=== PATIENT | female | born 1980 | race Caucasian/White ===

== ENCOUNTER 2020-03-02 15:17 | Emergency (ER) | payer OTHER, SELFPAY ==
--- NOTE | 2020-03-02 | XR_ITS ---
EXAMINATION: XR KNEE, LEFT CLINICAL INFORMATION: Hardware pain. COMPARISON: Left knee 08/15/2017 TECHNIQUE: Four views of the left knee. FINDINGS: There is evidence of previous left ACL repair. With a threaded screw extending from the medial proximal tibia to the lateral cortex with a small metallic staple is seen along superior to the left lateral femoral condyle. There is loss of medial and patellofemoral compartment joint space with periarticular spurring. The soft tissues are normal. No abnormal joint effusion seen. XR/XR knee LT 4V IMPRESSION: Evidence of previous left ACL repair unchanged to 08/15/2017 exam. Mild degenerative changes medial and patellofemoral compartments with periarticular spurring. No loose bodies or joint effusion seen.
[2020-03-02 15:26] VITALS: BP 142/91; PULSE 105; RESP 16; TEMP 36.7; O2SAT 100; BMI 41.3
--- NOTE | 2020-03-02 16:04 | ED.LOWEXIN ---
HPI - Extremity Injury (Lower) General Chief Complaint: Extremity Injury, Lower Stated Complaint: KNEE PAIN Time Seen by Provider: 03/02/20 16:04 Source: patient Mode of arrival: ambulatory Limitations: no limitations History of Present Illness HPI Narrative: 39 y/o female presenting with acute onset of left knee pain after she hurt it while getting out of bed last night. She has a history of knee surgery to that knee in the past. She does not recall if she inverted or everted the knee but she did hear a pop and has been having pain since last night. She is able to ambulate but she limps. She states the pain is on the inside of her knee, does no radiate. It is constant. Some improvement with ibuprofen earlier today. MD complaint: knee injury Onset (ago): day(s) (1) Injury: Left: knee Type of Injury: unknown Place: home Severity: moderate Severity scale (1-10): 7 Relieving factors: NSAID Exacerbating factors: weight bearing, movement and palpation Context: walking Associated symptoms: snap/pop sensation Other symptoms: none Treatments prior to arrival: NSAIDS Related Data Previous Rx's Medication Instructions Recorded ibuprofen 600 mg PO TID #30 tab 03/02/20 oxycodone 5 mg PO TID PRN #10 tab 03/02/20 Allergies Allergy/AdvReac Type Severity Reaction Status Date / Time codeine Allergy Nausea Verified 03/02/20 15:35 adhesives Allergy Unknown itching Uncoded 01/15/18 00:00 oxycodone Allergy Unknown itching Uncoded 01/15/18 00:00 Review of Systems Review of Systems: Constitutional: No Fever, No Chills Cardiovascular: No Chest Pain, No SOB Respiratory: No Cough, No Sputum Gastrointestinal: No Nausea, No Vomiting Musculoskeletal: + joint pain, No Myalgias Skin: No Skin Lesions, No rash Neuro: No Weakness, No Numbness Psych: No Anxiety/Panic, No Depression Heme/Lymph: No Bruising, No Lymphadenopathy PMFSH Past Medical History Attestation statement: The following information was validated with the patient. Medical History ACL (anterior cruciate ligament) rupture Atypical migraine Hodgkin lymphoma Right hand tendonitis Throat cancer Surgical History (Updated 03/02/20 @ 15:31 by Kroi Dia) H/O: hysterectomy Social History Social History Smoked in Last 30 Days: No Use of substances other than those prescribed or required for medical reasons: No Advance Directives: No Advance Directives Information Provided: Yes Physical Exam Vital Signs: Vital Signs: Vital Signs Temp Pulse Resp BP Pulse Ox 03/02/20 15:26 98.0 F 105 H 16 142/91 H 100 Body Mass Index 41.3 Appearance: Alert. Oriented X3. No acute distress. HEENT: normal inspection CVS: Normal heart rate and rhythm. Pulses normal. Respiratory: No respiratory distress. Skin: Skin warm and dry. Normal skin color. Normal skin turgor. No rashes. Extremities: left knee with tenderness along medial joint line, no joint laxity, anterior drawer test is negative. NV intact. Neuro: Oriented X 3. No motor deficit. No sensory deficit. Course Course Course Narrative: XR shows: Evidence of previous left ACL repair unchanged to 08/15/2017 exam. Mild degenerative changes medial and patellofemoral compartments with periarticular spurring. No loose bodies or joint effusion seen. Placed in BULMARO wrap for comfort. Deferring knee immobilization at this time. Crutches provided. Patient will follow up with her Orthopedist for further evaluation. MDM - Extremity Injury (Lower) MDM Narrative Medical decision making narrative: knee sprain or strain, possible tear of medial meniscus, possible tear or sprain of MCL Medical Records Attestation: I reviewed the patient's medical records. Critical Care Time Critical Care Time Critical Care Time: No Discharge Plan Discharge Clinical Impression: Knee sprain Qualifiers: Encounter type: initial encounter Involved ligament of knee: unspecified ligament Laterality: left Qualified Code(s): S83.92XA - Sprain of unspecified site of left knee, initial encounter Patient Disposition: Home, Self-Care Instructions: Knee Sprain (ED) Additional Instructions: Use ice 20 minutes at a time to the affected area several times per day for the next 48 hours. Elevate the knee to help with pain and swelling. Weight bearing as tolerated. Follow up with your Orthopedic Surgeon for further evaluation or follow up with Orthopedic Surgeon provided below. Prescriptions: New oxycodone 5 mg tablet 5 mg PO TID PRN (Reason: pain) Qty: 10 RF: 0 ibuprofen 600 mg tablet 600 mg PO TID Qty: 30 RF: 0 Referrals: Khadijah Bailey MD [Physician] - 2 days Stand Alone Forms: Work/School Release
[2020-03-02] MEDS: Acetaminophen 325 MG TABLET 975 MG PO (17:02)
[2020-03-02] MEDS: Ketorolac Tromethamine 30 MG/ML VIAL IM (17:03)
== END 2020-03-02 18:17 | disposition home or self-care (01) ==
PROVIDERS: Emergency Provider Emergency Medicine; PCP Pediatrics
DX: S83.92XA Sprain of unspecified site of left knee, initial encounter (principal); M25.562 Pain in left knee; X58.XXXA Exposure to other specified factors, initial encounter; Y93.9 Activity, unspecified; Y92.9 Unspecified place or not applicable; Y99.9 Unspecified external cause status
CPT/HCPCS: 73564; 96372; 99283; 99284; J1885

== ENCOUNTER 2021-04-29 09:46 | Outpatient (REF) | payer OTHER, SELFPAY ==
--- NOTE | ~2021-04-29 | CT_ITS ---
EXAMINATION: CT CHEST WITH CONTRAST CLINICAL INFORMATION: Lymphoma. Surveillance. COMPARISON: Previous chest CT most recent September 2017 TECHNIQUE: Multidetector volumetric CT imaging of the chest was obtained after the administration of 60 mL of Omnipaque 350 intravenous contrast without immediate adverse reactions. Axial MIP volume rendering provided. Sagittal and coronal reformatted images were obtained. This CT examination was performed using dose optimization techniques as appropriate, variously including the following: *Automated exposure control *Adjustment of mA and/or kV according to patient size (this includes techniques or standardized protocols for targeted exams where dose is matched to indication/reason for exam; i.e. extremities or head) *Use of iterative reconstruction technique DLP: 350 mGy-cm FINDINGS: LUNGS: There is a new 1 cm right upper lobe nodule axial image 105 series 13. There is a new heterogeneous or semisolid left lower lobe nodule measuring 8 mm axial image 281 series 13. There are adjacent smaller peribronchial left lower lobe nodules for example measuring 4 mm and 5 mm axial image 291 series 13. MEDIASTINUM: There is low-attenuation soft tissue with small calcification seen in the right. Mediastinum adjacent to the SVC the and left innominate vein axial image 9 series 11. This area is not as well evaluated on 2018 exam due to beam hardening artifact. This appears decreased in size from approximately 3 cm on previous PET/CT scan November 2018 and the calcification is new. There are additional smaller mediastinal lymph nodes, largest a pretracheal lymph node in the anterior superior mediastinum anterior to the trachea axial image 8 series 11. The mediastinum is otherwise normal.. PLEURA: There is no pleural effusion. No pleural mass or thickening. AXILLA: No chest wall mass or enlarged axillary lymph nodes. There are bilateral supraclavicular lymph nodes. The largest measures 1.2 cm on the right axial image 5 series 11. UPPER ABDOMEN: The gallbladder has been removed. OSSEOUS STRUCTURES: Unremarkable. CT/CT chest w con IMPRESSION: Low-attenuation partially calcified soft tissue in the right anterior superior mediastinum measuring 2 cm. This is difficult to compare with prior chest CT scans due to beam hardening artifact. This is decreased in size from previous PET/CT scan November 2016 and calcification is new. Additional smaller mediastinal lymph nodes. Small bilateral supraclavicular lymph nodes. New right upper pulmonary nodule measuring 1 cm. New clustered peribronchial left lower lobe nodules, largest measuring 8 mm. Clustered peribronchial appearance questions infectious or inflammatory process in the left lower lobe. Fleischner guidelines were followed.
--- NOTE | ~2021-04-29 | CT_ITS ---
EXAMINATION: CT SOFT TISSUE NECK WITH CONTRAST CLINICAL INFORMATION: Hodgkin's lymphoma. COMPARISON: CT/PET 12/08/2016, CT neck 10/11/2017, CT chest 10/10/2017 and 04/29/2021. TECHNIQUE: Following the intravenous administration of 100 mL of Omnipaque 350 intravenous contrast, helical imaging was performed in the axial plane with generation of coronal and sagittal reformatted images. This CT examination was performed using dose optimization techniques as appropriate, variously including the following: *Automated exposure control *Adjustment of mA and/or kV according to patient size (this includes techniques or standardized protocols for targeted exams where dose is matched to indication/reason for exam; i.e. extremities or head) *Use of iterative reconstruction technique DLP: 1554 mGy-cm FINDINGS: There are small shotty lymph nodes seen in bilateral anterior neck level 2 and level 3 along the carotid/jugular chain, stable. No bulky adenopathy seen in the neck, especially the supraclavicular fossa. The parotid glands are homogeneous in attenuation. The submandibular glands are normal. No contour abnormality or pathologic enhancement is seen within the oral cavity or pharyngeal mucosal space. The laryngeal structures are normal. The parapharyngeal fat is preserved. The carotid sheath vasculature opacify normally. No extra mucosal soft tissue mass or fluid collection is seen. No retropharyngeal fluid collection is seen. The thyroid gland is normal. The superior mediastinum is unremarkable. There is a 8 mm right upper lobe nodule axial image 116/5 it. There is mild mucoperiosteal thickening bilateral maxillary sinuses. The rest of the paranasal sinuses and mastoid air cells are well aerated.. The temporomandibular joints are normal. No periapical disease is identified. No osseous abnormalities are seen. The imaged portions of the brain parenchyma are unremarkable. CT/CT soft tissue neck w con IMPRESSION: No abnormal bulky lymphadenopathy seen in the neck. 8 mm nodule right upper lobe. This was visualized on recent CT chest exam 04/29/2021.
[2021-04-29] MEDS: iohexoL 350 MG/ML 100 ML INFUS..BTL IV (10:34)
== END 2021-04-29 09:47 | disposition home or self-care (01) ==
LOC: HO.CT 09:46
PROVIDERS: Visit Provider Internal Medicine
DX: C81.90 Hodgkin lymphoma, unspecified, unspecified site (principal)
CPT/HCPCS: 70491; 71260; Q9967

== ENCOUNTER → 2021-05-24 12:43 | Outpatient (BNVA) | payer OTHER, SELFPAY | PROVIDERS: PCP Pediatrics; Visit Provider Nurse Practitioner Family | DX: M25.562 Pain in left knee (principal); G89.29 Other chronic pain | CPT/HCPCS: 99202 ==

== ENCOUNTER → 2021-06-21 13:49 | Outpatient (BNVA) | payer OTHER, SELFPAY | PROVIDERS: PCP Pediatrics; Visit Provider Nurse Practitioner Family | DX: M25.562 Pain in left knee (principal); G89.29 Other chronic pain | CPT/HCPCS: 99212 ==

== ENCOUNTER 2021-07-19 06:12 | Outpatient (REF) | payer OTHER, SELFPAY ==
--- NOTE | ~2021-07-19 | FL_ITS ---
EXAMINATION: XR FLUOROSCOPY WITH IMAGES CLINICAL INFORMATION: Knee pain. COMPARISON: Previous x-ray July 2017 TECHNIQUE: Fluoroscopy performed by Deepika Crawford NP. Fluoroscopy time: 0.2 minutes DAP: 0.9 Gy-cm2 Images: 2 FINDINGS: Images demonstrate needle placement adjacent to the bilateral femoral distal metaphysis and proximal tibial medial metaphysis for geniculate nerve block. There are postsurgical changes from ACL repair that appear unchanged. FL/FL guidance in treatment room IMPRESSION: Fluoroscopy guidance for pain management procedure.
== END 2021-07-19 06:13 | disposition home or self-care (01) ==
LOC: HO.RADIR 06:12
PROVIDERS: Visit Provider Anesthesiology
DX: G89.29 Other chronic pain (principal); M25.562 Pain in left knee
CPT/HCPCS: 64454; J0690

== ENCOUNTER → 2021-07-22 12:11 | Outpatient (BNVA) | payer OTHER, SELFPAY | PROVIDERS: PCP Pediatrics; Visit Provider Nurse Practitioner Family | DX: Z13.89 Encounter for screening for other disorder (principal) ==

== ENCOUNTER 2021-09-12 10:42 | Emergency (ER) | payer OTHER, SELFPAY ==
--- NOTE | ~2021-09-12 | XR_ITS ---
EXAMINATION: XR CHEST CLINICAL INFORMATION: Dyspnea COMPARISON: CT chest 04/29/2021, chest radiograph 10/10/2017 TECHNIQUE: Frontal view of the chest was obtained. FINDINGS: No significant abnormality is noted involving the heart, lungs, mediastinum, bony thorax or soft tissues. The 1 centimeter right upper lobe pulmonary nodule seen on the prior CT scan not well appreciated on the current study. XR/XR chest 1V IMPRESSION: No acute intrathoracic disease.
[2021-09-12 11:42] VITALS: BP 154/89; PULSE 90; RESP 18; TEMP 36.8; O2SAT 97; BMI 48.2
== END 2021-09-12 21:49 | disposition left against medical advice (07) ==
PROVIDERS: Emergency Provider Emergency Medicine
DX: R06.02 Shortness of breath (principal); R50.9 Fever, unspecified; J44.9 Chronic obstructive pulmonary disease, unspecified; Z20.822 Contact with and (suspected) exposure to COVID-19; Z79.899 Other long term (current) drug therapy
CPT/HCPCS: 71045; 99283

== ENCOUNTER 2021-10-26 14:43 | Outpatient (REF) | payer OTHER, SELFPAY | END 2021-10-26 14:44 | disposition home or self-care (01) | LOC: HO.CT 14:43 | PROVIDERS: Visit Provider Internal Medicine | DX: Z13.89 Encounter for screening for other disorder (principal) ==

== ENCOUNTER 2021-11-02 09:08 | Outpatient (REF) | payer OTHER, SELFPAY ==
--- NOTE | ~2021-11-02 | CT_ITS ---
EXAMINATION: CT SOFT TISSUE NECK WITH CONTRAST CLINICAL INFORMATION: 41-year-old with history of Hodgkin's lymphoma, with pain and swelling. COMPARISON: 04/29/2021 CT. TECHNIQUE: Following the intravenous administration of 80 mL of Omnipaque 350 intravenous contrast, helical imaging was performed in the axial plane with generation of coronal and sagittal reformatted images. This CT examination was performed using dose optimization techniques as appropriate, variously including the following: *Automated exposure control *Adjustment of mA and/or kV according to patient size (this includes techniques or standardized protocols for targeted exams where dose is matched to indication/reason for exam; i.e. extremities or head) *Use of iterative reconstruction technique DLP: 1056 mGy-cm FINDINGS: SKULL BASE: The bony skull base and visualized calvarium are intact. The mastoids and middle ear cavities are unopacified. Limited assessment of the visualized intracranial structures demonstrates no acute process within the limitations of the study. The visualized orbital soft tissue structures are within normal limits. Small air-fluid levels are seen in the sphenoid sinus on both sides of the septum which are new findings. Otherwise mild mucosal thickening in the maxillary sinuses is stable. Nasal septal deviation to the left with a spur noted on the left is stable. SUPRAHYOID NECK: The nasopharynx, retropharynx, gunsmith apprentice and parapharyngeal spaces appear stable and within normal limits. Oropharynx is smoothly contoured. The major salivary glands are normal in morphology and attenuation unchanged in appearance. The base of the tongue and floor of the mouth structures appear symmetric and intact with normal attenuation. There are scattered small, nonpathologic-appearing, normal-sized lymph nodes in the submandibular space bilaterally with small, normal-sized, nonpathologic-appearing bilateral IJ chain lymph nodes largely unchanged in appearance. Vallecula and epiglottis appear normal. INFRAHYOID NECK: Multiple very small bilateral IJ chain lymph nodes are stable. The hypopharynx, larynx and thyroid gland appear within normal limits stable in appearance. Normal appearance to the retropharynx and tracheoesophageal grooves. There is a 12 mm lymph node in the left supraclavicular fossa which is stable. UPPER CHEST: Limited assessment. See accompanying CT of the chest. There is a 2.5 cm soft tissue density with central calcification in the superior mediastinum on the right along the medial border of the SVC which is stable from previous exam. SKELETAL: Skeletal structures appear grossly intact. OTHER COMMENTS: None. CT/CT soft tissue neck w con IMPRESSION: 1. Stable nonpathologic-appearing, nonenlarged multiple cervical lymph nodes as described above largely unchanged in appearance. 12 mm lymph node in the left supraclavicular fossa is stable. 2. A 2.5 cm soft tissue density with central calcification medial to the superior vena cava is unchanged. 3. Air-fluid levels in the sphenoid sinus noted on both sides on the current study which are nonspecific. 4. Otherwise no interval change.
--- NOTE | ~2021-11-02 | CT_ITS ---
EXAMINATION: CT CHEST WITH CONTRAST CLINICAL INFORMATION: Hodgkin's lymphoma. COMPARISON: Previous chest x-ray August [address] most recent March 2021 TECHNIQUE: Multidetector volumetric CT imaging of the chest was obtained after the administration of 80 mL of Omnipaque 350 intravenous contrast without immediate adverse reactions. Axial MIP volume rendering provided. Sagittal and coronal reformatted images were obtained. This CT examination was performed using dose optimization techniques as appropriate, variously including the following: *Automated exposure control *Adjustment of mA and/or kV according to patient size (this includes techniques or standardized protocols for targeted exams where dose is matched to indication/reason for exam; i.e. extremities or head) *Use of iterative reconstruction technique DLP: 760 mGy-cm FINDINGS: LUNGS: The previously identified 1 cm right upper lobe nodule appears decreased in size and density axial image 117 series 7. There is a new 3 x 6 mm right upper lobe nodule axial image 214 series 7. The previously identified left lower lobe 8 mm nodule appears decreased in size and density. There is a new 3 x 8 mm peripheral or subpleural left lower lobe nodule axial image 303 series 7. There is a new 5 mm left lower lobe nodule axial image 320 series 7. There are new areas of increased peribronchial attenuation and semisolid nodular densities for example in the right upper lobe axial image 138 series 7 and in the left lower lobe for example axial image 350 series 7. Waxing and waning appearance of nodules favors an infectious or inflammatory process. There is mild bronchial wall thickening in the left lower lobe. No endobronchial or endotracheal lesion is seen. MEDIASTINUM: There is increased low-attenuation soft tissue seen in the right superior mediastinum and small central calcification measuring approximately 1.8 x 2 cm. This is stable. There are no other enlarged hilar or mediastinal lymph nodes. The heart does not appear enlarged. There is no pericardial effusion. The thoracic aorta is normal in caliber. PLEURA: There is no pleural effusion. No pleural mass or thickening. AXILLA: Chest wall mass or enlarged axillary lymph nodes. There are bilateral small coracoclavicular lymph nodes that appear stable, left greater than right. UPPER ABDOMEN: Unremarkable OSSEOUS STRUCTURES: Unremarkable. CT/CT chest w con IMPRESSION: Stable low-attenuation soft tissue with small central calcification in the right superior mediastinum posterior to the right clavicular head from most recent exam. Stable bilateral small superior clavicular lymph nodes, left greater than right. No new adenopathy. Waxing and waning appearance of bilateral pulmonary nodules favoring an infectious or inflammatory process. Fleischner guidelines were followed.
[2021-11-02] MEDS: iohexoL 350 MG/ML 100 ML INFUS..BTL IV (11:23)
== END 2021-11-02 09:09 | disposition home or self-care (01) ==
LOC: HO.MDS 09:08
PROVIDERS: Visit Provider Internal Medicine
DX: Z01.818 Encounter for other preprocedural examination (principal); Z85.71 Personal history of Hodgkin lymphoma; C14.0 Malignant neoplasm of pharynx, unspecified
CPT/HCPCS: 70491; 71260; 96360; Q9967

== ENCOUNTER 2022-07-25 11:35 | Outpatient (REF) | payer OTHER, SELFPAY ==
[2022-07-25 11:54] LABS: MANUAL DIFF FLAG NO
[2022-07-25 12:09] LABS: Basophils Percent Auto 0.5 % (0-2); Eosinophils Absolute Auto 0.2 X10*3/uL (0.0-0.4); Eosinophils Percent Auto 3.1 % (0-4); Hematocrit 35.3 % (37.0-47.0); Hemoglobin 11.6 g/dl (12.0-16.0); Imm Gran Abs Auto 0.02 X10*3/uL (0.00-0.03); Imm Gran Pct Auto 0.3 % (0.0-0.4); Lymphocytes Percent Auto 31.4 % (20-40); Mean Corpuscular HGB Conc 32.9 g/dl (31.0-35.0); Mean Corpuscular Hemoglobin 32.7 pg (27.0-33.0); Mean Corpuscular Volume 99.4 fL (80.0-98.0); Mean Platelet Volume 8.6 fL (9.4-12.3); Monocytes Absolute Auto 0.2 X10*3/uL (0.1-1.2); Monocytes Percent Auto 3.8 % (2-11); Neutrophils Absolute Auto 3.9 x10*3/uL (2.0-8.3); Neutrophils Percent Auto 60.9 % (45-73); Platelet Count 263 X10*3/uL (160-400); Red Blood Count 3.55 X10*6/uL (4.20-5.50); White Blood Count 6.4 X10*3/uL (4.8-10.8)
[2022-07-25 12:46] LABS: Erythrocyte Sedimentation Rate 26 MM/HR (0-20)
[2022-07-25 13:13] LABS: Anion Gap 10 (12-20); Blood Urea Nitrogen 8 mg/dL (9-16); Calcium 9.3 mg/dL (8.4-10.2); Carbon Dioxide 22 mmol/L (22-29); Chloride 114 mmol/L (96-108); Estimated Glomerular Filt Rate > 60; Glucose Random 103 mg/dL (60-115); Potassium 4.2 mmol/L (3.3-5.1); Sodium 142 mmol/L (135-145)
== END 2022-07-25 11:36 | disposition home or self-care (01) ==
LOC: HO.LAB 11:35
PROVIDERS: PCP Internal Medicine; Visit Provider Psychiatry & Neurology Neurology
DX: G43.909 Migraine, unspecified, not intractable, without status migrainosus (principal)
CPT/HCPCS: 36415; 80048; 85025; 85652

== ENCOUNTER 2024-12-02 11:15 | Outpatient (AMB) | payer OTHER, SELFPAY ==
--- NOTE | 2024-12-02 11:54 | A.OFFVIS_ITS ---
Intake Visit Reasons: 3 Months follow up Allergies codeine Allergy (Verified 12/02/24 11:58) Nausea oxycodone Allergy (Unknown, Uncoded 12/02/24 11:58) itching adhesives Adverse Reaction (Intermediate, Uncoded 12/02/24 11:58) itching Medication List - Last Reconciled 12/02/24 by Dalia Ruiz, JOSÉ MIGUEL apixaban (Eliquis) 1 tab PO BID cyanocobalamin (vitamin B-12) (Vitamin B-12) 1,000 mcg PO DAILY fluticasone propionate 44 mcg/actuation (Flovent HFA) 2 puffs inhalation BID levothyroxine 1 tab PO DAILY nortriptyline 150 mg PO BEDTIME omeprazole 1 cap PO DAILY topiramate 100 mg orally 1 tab in AM and 2 tabs at bedtime; zolmitriptan take 1 tab at onset of headache; if no relief may repeat 1 tab after at least 2 hrs; max = 4 tabs/24 hr PO zolpidem 10 mg PO BEDTIME PRN 30 days HPI Comments Details: Headaches were about the same. Headaches happening about 2-3x/week with photophobia and sonophobia. No nausea or vomiting. Sumatriptan used to help, but was needing to repeat dose. She was using zolmitriptan 2.5mg which helped some, but has to lay down after taking it. She tried Nurtec samples in the past which helped and did not have side effects, but she was unable to get medication from pharmacy. She was working part-time at the [employer] in housekeeping. She was under more stress lately. She was having some more trouble breathing and had CT scan which apparently showed mass, has appointment with surgeon later this week. Sleep was okay. [employer] does not work for her. Previously had moderately severe, throbbing headache that was primarily right sided and behind right eye. It was associated with photophobia, sonophobia, and some nausea. She was not taking morning dose of topiramate and was only taking topiramate 200mg at bedtime. Had surgery on L knee 11/30/2023. Rizatriptan did not help. Has better relief with sumatriptan. Cold packs also help. Hodgkin's lymphoma diagnosed 09/17/16 is in remission. Had 4 courses [address] from Dr[address] Thompson. She has regular headaches most of her life which got worse around 2009 and started occurring about twice a week. They intensified and are associated with photosensitivity, sonophobia, nausea and occasional vomiting. She has difficulty sleeping with trouble initiating and maintaining sleep and feels tired and fatigued all the time. She also has some elements of depression. Covid in early 06/2021. [facility] Medical History (Updated 12/02/24 @ 11:56 by Dalia Ruiz CNP) Migraine Insomnia History of meniscal tear Hypothyroid Right hand tendonitis ACL (anterior cruciate ligament) rupture Atypical migraine Hodgkin lymphoma Throat cancer Surgical History Hx of lymph node excision Hx of carpal tunnel repair History of repair of ACL H/O: hysterectomy Social History Household Members: Significant Other Housing: Apartment Are you a primary nursing care partner to a significant other at home: No Do you presently have visiting nurse or other home services: No Patient Tobacco Use Status: Never used Tobacco service: No Current occupational status: employed [employer] Const Denies chills, Denies daytime sleepiness, Reports difficulty sleeping, Denies fatigue, Denies fever(s), Denies frequent falls, Reports headache(s), Denies increased appetite, Denies poor appetite, Denies snoring, Denies weakness, Denies weight gain and Denies weight loss Eyes Denies loss of vision ENT Denies vertigo, Denies dizziness, Reports headache(s) and Denies neck pain Card Denies chest pain at rest, Denies chest pain with activity, Denies syncope, Denies leg edema, Denies palpitations, Denies dyspnea and Denies dyspnea on exertion Resp Denies cough, Denies dyspnea, Denies dyspnea on exertion and Denies snoring GI Denies abdominal pain, Denies constipation, Denies heartburn, Denies diarrhea and Denies nausea Denies urinary frequency, Denies urinary incontinence and Denies urinary urgency Musc Denies abnormal gait, Denies back pain, Denies myalgias, Denies arthralgias, Denies neck pain, Denies numbness and Denies tingling Neuro Denies abnormal gait, Denies vertigo, Denies dizziness, Denies syncope, Denies frequent falls, Reports headache(s), Denies lack of coordination, Denies loss of vision, Denies memory loss, Denies numbness, Denies Other visual disturbances, Denies restless legs, Denies seizure-like activity, Denies tingling, Denies paresthesias, Denies tremor(s) and Denies weakness Psych Denies anxiety, Denies depression, Denies auditory hallucinations, Denies memory loss and Denies visual hallucinations Endo Denies fatigue and Denies palpitations Physical Exam Const Other: General Appearance:? normal, in no acute distress. Heart:? S1, S2 normal, no murmurs. Lungs:? clear anteriorly and posteriorly. Musculoskeletal:? normal. Extremities:? no edema. Psych:? alert, oriented, cognitive function intact, cooperative with exam. Neuro Other: Abnormal Neurological Findings:?none.? Mental Status: alert and oriented X 3. Normal attention, orientation, memory, and affect. Cranial Nerves: Pupils are equal, round, and reactive to light. External ocular muscles are intact. Visual ahn are full, no ptosis. Face is symmetrical, no facial weakness or droop. Facial sensations are normal. Tongue protrudes in midline. Palate elevates symmetrically. Shoulder shrugging is normal Motor Examination: Normal muscle tone, bulk and strength. No atrophy or fasciculations. No drift of the extended upper extremities. DTR 2+. Plantars are flexor. Straight Leg Raisin degrees. Sensory Exam: Normal light touch, temperature, pinprick, vibration, and joint- position sensations. Rhomberg sign is absent. Coordination: No ataxia. No titubation. [id number], vjcy-[id number]-[id number] test, and rapid alternating movements were normal. Gait Exam: Within normal limits. Cerebellar Signs: [id number] and [id number]-[id number] is normal. No dysdiadochokinesia. Extrapyramidal System: No tremor, rigidity with normal facial expressions. No bradykinesia. No bradyphrenia. Normal arm swing and posture. No propulsion or retropulsion. Speech: Normal. No dysphasia or dysarthria. Assessment & Plan Assessment & Plan (1) Migraine: Code(s): G43.909 - Migraine, unspecified, not intractable, without status migrainosus Category: Medical Qualifiers: Migraine type: unspecified Status migrainosus presence: without status migrainosus Intractability: not intractable Qualified Code(s): G43.909 - Migraine, unspecified, not intractable, without status migrainosus Plan: Continue topiramate 100mg 1 tablet in the morning and 2 tablets at bedtime Continue nortriptyline 50mg 3 capsules at bedtime Continue zolmitriptan 2.5mg 1 tablet as needed for migraine. She tried Nurtec sample as needed in the past with good relief. Will try to reorder medication. Start Nurtec 75mg 1 tablet on tongue and allow to dissolve once a day as needed for migraine. She tried and failed sumatriptan, rizatriptan, zolmitriptan, and butalbital. (2) Insomnia: Code(s): G47.00 - Insomnia, unspecified Category: Medical Qualifiers: Insomnia type: unspecified Qualified Code(s): G47.00 - Insomnia, unspecified Plan: Continue zolpidem 10mg 1 tablet at bedtime as needed for sleep Plan Meds tried: topiramate, nortriptyline, rizatriptan, sumatriptan, zolmitriptan, butalbital Medications: New rimegepant (Nurtec ODT) 75 mg PO Q OTHER DAY PRN 10 tabs 5RF migraine headache 30 days Coding Level of Care Code Est Pt Level 4 (53943) Diagnoses Migraine without status migrainosus, not intractable, unspecified migraine type G43.909 Migraine type: unspecified Status migrainosus presence: without status migrainosus Intractability: not intractable Insomnia, unspecified type G47.00 Insomnia type: unspecified
--- OUTSIDE RECORDS SUMMARY | 2024-12-02 11:59 | XMS_ITS ---
Author Name [facility] Organization Unknown Care Team Organization Name Specialty Phone Email Start Date End Da te [facility] Ashli Melendez [facility] 04/11/2023 024 [facility] MEDINA MORLEY Primary [facility] 03/07/2022 12/17/19 24
--- OUTSIDE RECORDS SUMMARY | 2024-12-02 11:59 | XMS_ITS | Clinical Summary ---
Author Organization 175 [facility] Address [address] [place] [address] Phone Care Team Providers Care [employer] Curator Name Role Phone Hugo James MD Primary Care Provider [phone] Allergies Active Allergy Reactions Criticality Noted Date Comments Codeine GI intolerance 10/23/2018 Medications zolpidem (AMBIEN) 5 mg tablet Take 2 tablets (10 mg total) by mouth at bedtime as needed. 03/20/20 22 Active nortriptyline (PAMELOR) 50 mg capsule Take 200 mg by mouth at bedtime. 06/17/19 15 Active albuterol HFA (PROAIR HFA ; PROVENTIL HFA ; VENTOLIN HFA) 90 mcg/actuation inhalerIndicati ons:Moderate persistent asthma with acute exacerbation Inhale 2 puffs by mouth every 4 (four) hours if needed for wheezing. 6.7 g 1 07/23/19 25 Active topiramate (TOPAMAX) 100 mg tablet Take 1 tablet (100 mg total) by mouth 1 (one) time each day. 90 each 07/23/19 25 Active mometasone (Asmanex Twisthaler) 220 mcg/ actuation (60) aerosol powdr breath activated inhaler Inhale 1 puff by mouth 1 (one) time each day in the evening. 1 each 12 07/23/19 25 Active magnesium oxide (MAG-OX) 400 mg magnesium tablet Take 1 tablet (400 mg total) by mouth 1 (one) time each day. 90 tablet 1 07/23/19 25 Active Eliquis 5 mg tablet TAKE ONE TABLET BY MOUTH TWICE A DAY 60 tablet 4 09/24/19 Active albuterol HFA (Proventil HFA) 90 mcg/actuation inhalerIndicati ons:Chronic dyspnea Inhale 2 puffs by mouth every 4 (four) hours if needed for wheezing or shortness of breath. 6.7 g 1 10/09/19 25 2025 Active albuterol 2.5 mg /3 mL (0.083 %) nebulizer solution Take 3 mL (2.5 mg total) by nebulization every 6 (six) hours if needed for wheezing. 50 mL 1 10/09/19 Active levothyroxine (SYNTHROID, LEVOTHROID) 75 mcg tablet TAKE ONE TABLET BY MOUTH EVERY DAY 90 tablet 1 10/11/19 Active omeprazole (PriLOSEC) [address] capsule TAKE ONE CAPSULE BY MOUTH EVERY DAY 90 capsule 10/11/19 Active cholecalciferol (Vitamin D3) 50 mcg (2,000 unit) capsule Take 1 capsule (2,000 Units total) by mouth 1 (one) time each day. 30 each 10/11/19 25 2025 Active ergocalciferol (VITAMIN D-2) 1,250 mcg (50,000 unit) capsule Take 1 capsule (50,000 Units total) by mouth 1 (one) time per week. 12 capsule 10/11/19 25 2024 Active cyclobenzaprine (FLEXERIL) 5 mg tablet Take 1 tablet (5 mg total) by mouth at bedtime as needed for muscle spasms. 30 tablet 1 11/22/19 25 2024 Active predniSONE (DELTASONE) 20 mg tablet Take 60 mg PO daily for 3 days, then take 40 mg PO daily for 3 days, then 20 mg PO daily for 3 days, then stop 18 tablet 11/22/19 Active levocetirizine (XYZAL) 5 mg tablet Take 1 Tablet by mouth every evening. 06/22/192024 Discontinued ZOLMitriptan (ZOMIG) 2.5 mg tablet Take 1 tablet (2.5 mg total) by mouth 1 (one) time if needed for migraine. May repeat once after 2 hours. 18 tablet 3 03/11/20 24 2024 Discontinued predniSONE (DELTASONE) 20 mg tablet Take 60 mg PO daily for 3 days, then take 40 mg PO daily for 3 days, then 20 mg PO daily for 3 days, then stop 18 tablet 10/17/19 25 2024 Discontinued Active Problems Problem Noted Date Diagnosed Date Mediastinal mass 11/21/2024 Abnormal CBC 10/08/2024 Proteinuria 10/08/2024 Hypokalemia 10/08/2024 Memory loss 10/08/2024 Encounter for vitamin deficiency screening 10/08 Nasal congestion 10/08/2024 Hypothyroidism 10/08/2024 Elevated alkaline phosphatase level 10/08/2024 Allergies 06/22/2023 Exposure to secondhand smoke 06/22/2023 Wheezing 06/22/2023 Solitary pulmonary nodule 08/23/2022 Overview (02/20/2024): Last Assessment & Plan: Patient has an incidental 05 cm right upper lobe pulmonary nodule. The patient is young and is a non-smoker. According to the Fleischner guidelines her follow-up should be optional in 12 months. Dyspnea 06/08/2022 Overview (02/20/2024): Last Assessment & Plan: Symptoms has been longstanding. She states she had shortness of breath all the time since she can remember things and symptom has been more or less similar. Echocardiogram is normal and shows no evidence of systolic or diastolic abnormality and we have no objective finding of heart failure. Echocardiogram pulmonary tear systolic pressure was normal by tricuspid valve velocity calculation although sometimes pulmonary arterial systolic pressure can be underestimated due to suboptimal TR signal. The pulmonary function test was reported to be normal despite her morbid obesity. Her heart rate slightly on the higher side at around 90 and a blood pressure is slightly on the higher side as well. I will try low-dose metoprolol. We will try to find her sleep study report. She cannot exercise on the treadmill due to obesity and knee pain. I will schedule dobutamine stress echo. We will attempt to reassess pulmonary arterial pressure as wall. Ovarian cyst 01/18/2022 Chronic pain of left knee 08/09/2021 Overview (02/20/2024): [facility] Homelessness 10/03/2018 Intentional acetaminophen ov erdose ([facility] V24, [facility] V28) 10/03/2018 Overview (02/20/2024): 09/23/18 NSAID overdose, intentional self-harm, initial encounter ([facility] V24, [facility] V28) 10/03/2018 Overview (02/20/2024): 09/23/18, hospitalized [facility]. Other pulmonary embolism wit hout acute cor pulmonale ([facility] V24, [facility] V28) 10/03/2018 Morbid obesity due to excess calories ([facility] V24, [facility] V28) 01/23/2017 Lymphoma ([facility] V24, [facility] V28) 10/13/2016 Overview (02/20/2024): Classic Hodgkin Lymphoma. Followed by oncology at [facility], (Dr. Thompson) ESTEE II (cervical intraepithelial neoplasia II) 0 05/20/2012 Accidental overdose by codeine ([facility] V24, [facility] V28) 01/30/2012 Overview (02/20/2024): Took 20 Tylenol with Codeine to treat a headache; started vomiting, was evaluated at [facility]. October 2011. Accidental acetaminophen overdose 01/30/2012 Chronic sinusitis 08/25/2011 Headache 08/25/2011 Overview (02/20/2024): Dr. Maria Eugenia Hopkins 12/03/2009 Encounters Date Type Department Care Team Description 11/21/2024 10:03 AM EDT - 11/21/2024 11:59 PM EDT Hospital Encounter [facility] Xray [address] [place] [address] Pain Discharge Disposition: Home or Self Care 11/21/2024 9:46 AM EDT - 11/21/2024 11:59 PM EDT Hospital Encounter [facility] CT Scan [address] [place] [address] Acute left-sided low back pain without sciatica; SOB (shortness of breath); Other chronic pulmonary embolism, unspecified whether acute cor pulmonale present ([facility] V24, [facility] V28) Discharge Disposition: Home or Self Care 11/21/2024 9:45 AM EDT - 11/21/2024 11:59 PM EDT Hospital Encounter [facility] Xray [address] [place] [phone] Left foot pain Discharge Disposition: Home or Self Care 11/21/2024 8:45 AM EDT Office Visit Adult [address] [phone] Hugo James MD Acute left-sided low back pain without sciatica (Primary Dx); SOB (shortness of breath); Left leg swelling; Other chronic pulmonary embolism, unspecified whether acute cor pulmonale present ([facility] V24, [facility] V28); Left foot pain 10/16/2024 10:00 AM EDT Office Visit [address] [phone] Fanta Gonsalez PA Left foot pain (Primary Dx); Plantar fasciitis 10/15/2024 Telephone Adult [address] [phone] Hugo James MD heel pain 10/08/2024 12:30 PM EDT Office Visit [address] [phone] Hugo James MD Chronic dyspnea (Primary Dx); Abnormal CBC; Proteinuria, unspecified type; Hypokalemia; Memory loss; Encounter for vitamin deficiency screening; Other chronic pulmonary embolism without acute cor pulmonale ([facility] V24, [facility] V28); Hypothyroidism, unspecified type; Nasal congestion; Elevated alkaline phosphatase level; Skin lesion of face; Vitamin D deficiency 09/29/2024 Telephone Adult [address] [phone] Hugo James MD Abdominal Pain; Shortness of Breath from Last 3 Months Immunizations Name Administration Dates Next Due Influenza Quadravalent, MDCK , 0.5ml, preservative free (Flucelvax) 6mo and older 02/05/2023,03/20/2022,03/30/2021 Influenza trivalent, 0.5mL, preservative free (Fluarix; FluLaval; Fluzone) ages 6mo and older (Afluria) 3 years and older 01/30/2012,02/01/2010 Influenza, Unspecified 02/12/2024 Tdap Tetanus diptheria acell ular pertussis (Boostrix; Adacel) 7yo and older 02/05/2023,10/15/2009 Surgical History Surgery Date Site/Laterality Comments SECTION 08/11/2001 PROCEDURE: HISTORICAL KNEE SURGERY 06/27/2013 PROCEDURE: HISTORICAL KNEE SURGERY; COMMENT: left knee ACL,medial meniscus repair OTHER SURGICAL HISTORY 07/29/2001 PROCEDURE: HISTORICAL SUPRACERVICAL HYSTERECTOMY W/O BSO; COMMENT: for hemorrhage CARPAL TUNNEL RELEASE N/A PROCEDURE: HISTORICAL CARPAL TUNNEL REL CHOLECYSTECTOMY PROCEDURE: LAPAROSCOPY, CHOLECYSTECTOMY Medical History Medical History Date Comments Obesity 12/03/2009 DX:Obesity Edentulous 12/03/2009 DX:Edentulous Chronic sinusitis 08/25/2011 DX:Chronic sin usitis ESTEE III (cervical intraepith elial neoplasia grade III) with severe dysplasia DX:ESTEE III (cervical intraep ithelial neoplasia grade III) with severe dysplasia Non Hodgkin's lymphoma (CMS/ HCC V24, CMS/HCC V28) 2016 DX:Non Hodgkin's lymphoma (H CC) Chronic pain of left knee 08/09/2021 DX:Chr onic pain of left knee; COMMENT: [facility] Other pulmonary embolism wit hout acute cor pulmonale (CMS/HCC V24, CMS/HCC V28) DX:Other pulmonary embolism without acute cor pulmonale (HCC) Migraine DX:Migraine Hypothyroidism DX:Hypothyroidis m Covid-19 DX:COVID-19 Family History Medical History Relation Name Comments COPD Father Diabetes Maternal Grandfather Diabetes Maternal Grandmother COPD Mother Breast cancer Neg Hx Colon cancer Neg Hx Ovarian cancer Neg Hx Uterine cancer Neg Hx Relation Name Status Comments Brother Alive Daughter Alive asthma adhd Father copd Maternal Grandfather ca Maternal Grandmother ca Mother dm, high blood pressure, ulcers, anemia, seizures Paternal Grandfather Paternal Grandmother Sister 1 Alive Sister 2 Alive Son Alive healthy Social History Tobacco Use Types Packs/Day Years Used Date Smoking Tobacco: Never Smokeless Tobacco: Never Tobacco Cessation:Counseling Given: Not Answered Alcohol Use Standard Drinks/Week Comments Yes 0 (1 standard drink = 0.6 oz pur e alcohol) Comments No Sex and Gender Information Value Date Recorded Sex Assigned at Female 12/02/2024 11:49 AM EDT Legal Sex Female 11:52 PM EST Gender Identity Female 12/02/2024 11:49 AM EDT Sexual Orientation Straight 12/02/2024 11 :49 AM EDT Obstetrics History Last Filed Vital Signs Vital Sign Reading Time Taken Comments Blood Pressure 122/88 11/21/2024 8:37 AM EDT Pulse 98 11/21/2024 8:37 AM EDT Temperature 36.3 C (97.4 F) 11/21/2024 8:37 AM EDT Respiratory Rate 16 10/08/2024 12:17 PM EDT Oxygen Saturation 98% 07/22/2024 8:54 AM EDT Inhaled Oxygen Concentration - - Weight 137 kg (302 lb) 11/21/2024 8:37 AM EDT Height 167.6 cm (5' 6 ) 11/21/2024 8:37 AM EDT Body Mass Index 48.74 11/21/2024 8:37 AM EDT Plan of Treatment Upcoming Encounters Date Type Department Care Team (Late st Contact Info) Description 12/04/2024 1:00 PM EDT Consult Thoracic Surgery - [place] [address] [phone] Claudia Carrera MD [address] [address] 12/09/2024 11:15 AM EDT Appointment [facility] Ultrasound [address] [place] [address] 12/10/2024 11:00 AM EDT Appointment [facility] Pulmonary [address] [place] [address] 01/05/2025 3:45 PM EDT Ancillary Procedure [facility] 101 [address] [facility] [address] [place] [address] 01/13/2025 10:45 AM EDT Consult Orthopedic Surgery - [place] 250 175 [facility] [address] [place] [phone] Robinson Farah DPM 175 [facility] [address] [place] [address] 02/26/2025 2:30 PM EDT Consult Bariatric Surgery - [place] 175 [facility] [address] [place] [address] Leonarda Munoz MD 175 [facility] [address] [place] [address] 03/12/2025 11:30 AM EST Office Visit Adult [facility] [address] [place] [address] Hugo James MD [address] [place] [address] Health Maintenance Due Date Last Done Comments Breast Cancer Screening 1980 Cervical Cancer Screening: Pap Smear 01/10/2019 01/11/2016, 01/11/2016 Pneumococcal Vaccine: Pediatrics (0 to 5 Years) and At-Risk Patients (6 to 49 Years) (3 of 3 - PCV) 09/06/2019 09/05/2018, 10/02/2016 Colorectal Cancer Screening: Colonoscopy 04/08/2022 HIV Screening 04/08/2022 Hepatitis C Screening 04/08/2022 Social Influencers of Health Screening 04/08/2022 Hepatitis B Vaccines (2 of 3 - 19+ 3-dose series) 10/05/2023 09/07/2023 COVID-19 Vaccine ( - 2023- season) 2023 02/12/2023, 06/22/2021, 06/30/2020, Additional history exists Depression Screening 04/30/2024 Influenza Vaccine (#1) 2024 4, 02/05/2023, 03/20/2022, Additional history exists Cholesterol Screening (Lipid Panel) 10/26/2027 10/25/2022 DTaP,Tdap,and Td Vaccines (3 - Td or Tdap) 02/05/2033 02/05/2023, 10/15/2009 MMR Vaccines Aged Out 09/13/2023 No longer eligi ble based on patient's age to complete this topic HIB Vaccines Aged Out No longer eligi ble based on patient's age to complete this topic HPV Vaccines Aged Out No longer eligi ble based on patient's age to complete this topic Hepatitis A Vaccines Aged Out No long er eligible based on patient's age to complete this topic IPV Vaccines Aged Out No longer eligi ble based on patient's age to complete this topic Meningococcal ACWY Vaccine Aged Out N o longer eligible based on patient's age to complete this topic Meningococcal B Vaccine Aged Out No l onger eligible based on patient's age to complete this topic RSV Immunization Patients Under 20 months Aged Out No longer eligible based on patient's age to complete this topic Varicella Vaccines Aged Out No longer eligible based on patient's age to complete this topic Procedures Procedure Name Priority Date/Time Associated Diagnosis Comments CT ANGIO CHEST WO AND/OR W CONTRAST STAT 11/21/2024 10:53 AM EDT Acute left-sided low back pain without sciatica SOB (shortness of breath) Other chronic pulmonary embolism, unspecified whether acute cor pulmonale present (CMS/[facility] V24, CMS/[facility] V28) XR LUMBAR SPINE 4+ VIEWS Routine 11/21/2024 10:15 AM EDT Pain XR FOOT 3+ VIEWS LEFT Routine 11/21/2024 10:14 AM EDT Left foot pain GARCIA URINE CULTURE TUBE Routine 10/08/2024 1:38 PM EDT Proteinuria, unspecified type URINALYSIS WITH REFLEX MICROSCOPIC AND CULTURE Routine 10/08/2024 1:38 PM EDT Proteinuria, unspecified type CBC WITH AUTO DIFFERENTIAL Routine 10/08/2024 1:38 PM EDT Abnormal CBC URINALYSIS WITH REFLEX MICROSCOPIC AND CULTURE Routine 10/08/2024 1:38 PM EDT Proteinuria, unspecified type CBC AND DIFFERENTIAL Routine 10/08/2024 1:38 PM EDT Abnormal CBC COMPREHENSIVE METABOLIC PANEL Routine 10/08/2024 1:38 PM EDT Hypokalemia VITAMIN D 25 HYDROXY Routine 10/08/2024 1:38 PM EDT Encounter for vitamin deficiency screening TREPONEMA PALLIDUM ANTIBODY WITH REFLEX TO RPR AND PARTICLE AGGLUTINATION Routine 10/08/2024 1:38 PM EDT Memory loss ALKALINE PHOSPHATASE, BONE SPECIFIC Routine 10/08/2024 1:38 PM EDT Elevated alkaline phosphatase level CULTURE URINE Routine 10/08/2024 1:38 PM EDT Proteinuria, unspecified type THYROID STIMULATING HORMONE WITH REFLEX TO FREE T4 AND FREE T3 Routine 10/08/2024 1:25 PM EDT Elevated TSH Low magnesium level LIPID PANEL Routine 10/25/2022 HM HPV Routine 01/11/2016 from Last 3 Months or Most Recently Relevant to Health Maintenance Results * CT Angio Chest wo and/or w Contrast (11/21/2024 10:53 AM EDT) Anatomical Region Laterality Modality Body Computed Tomogra phy 11/21/2024 11:0 0 AM EDT Impressions 11/21/2024 11:14 AM EDT 1. No pulmonary embolism. 2. Significant interval decrease in size of a previously demonstrated right superior mediastinal mass compared with a prior study dated 12/04/2016. There is a small residual mass with central coarse dystrophic calcifications. Superior sternal lymphadenopathy seen on the previous study has resolved. -------- FINAL REPORT -------- Dictated By: Boyd Tyler Dictated Date: 11/21/2024 11:00 ET Assigned Physician: Boyd Tyler Reviewed and Electronically Signed By: Boyd Tyler Signed Date: 11/21/2024 11:14 ET Workstation ID: [id number] Transcribed By: Self Edit Transcribed Date: 11/21/2024 11:01 ET Narrative 11/21/2024 11:14 AM EDT PROCEDURE: CT pulmonary angiogram. HISTORY: PE suspected, high prob persistent SOB, prior hx of PE on eliquis at present (NEEDS CT CHEST WITH CONTRAST). TECHNIQUE: CT of the chest with intravenous contrast administration with pulmonary angiogram protocol. Coronal and sagittal reformats and MIP reconstructions were created. Dose length product: 766 mGy-cm. Contrast dose: 90 mL [id number]. COMPARISON: 12/04/2016. FINDINGS: LUNGS/PLEURA: The central airways are clear and normal in caliber. Lungs are clear. No pleural effusion or pneumothorax. MEDIASTINUM/DIANE: Significant interval decrease in size of a right superior mediastinal mass. There is a residual 2.4 x 2.1 cm mass with coarse central calcifications. Previously demonstrated enlarged mediastinal nodes are no longer present. VASCULATURE: Normal caliber pulmonary arteries. No pulmonary embolism. Normal appearance of the great vessels. CARDIAC: Mild cardiomegaly. Minimal coronary artery calcification. CHEST WALL: No axillary or supraclavicular lymphadenopathy. LIMITED ABDOMEN: Unremarkable. BONES: Degenerative changes of the right AC joint. Procedure Note Boyd Tyler MD - 11/21/2024 PROCEDURE: CT pulmonary angiogram. HISTORY: PE suspected, high prob persistent SOB, prior hx of PE on eliquis at present (NEEDS CT CHEST WITHCONTRAST). TECHNIQUE: CT of the chest with intravenous contrast administration withpulmonary angiogram protocol. Coronal and sagittal reformats and MIPreconstructions were created. Dose length product: 766 mGy-cm. Contrast dose: 90 mL [id number]. COMPARISON: 12/04/2016. FINDINGS: LUNGS/PLEURA: The central airways are clear and normal in caliber. Lungsare clear. No pleural effusion or pneumothorax. MEDIASTINUM/DIANE: Significant interval decrease in size of a rightsuperior mediastinal mass. There is a residual 2.4 x 2.1 cm mass withcoarse central calcifications. Previously demonstrated enlargedmediastinal nodes are no longer present. VASCULATURE: Normal caliber pulmonary arteries. No pulmonary embolism.Normal appearance of the great vessels. CARDIAC: Mild cardiomegaly. Minimal coronary artery calcification. CHEST WALL: No axillary or supraclavicular lymphadenopathy. LIMITED ABDOMEN: Unremarkable. BONES: Degenerative changes of the right AC joint. IMPRESSION: 1. No pulmonary embolism. 2. Significant interval decrease in size of a previously demonstratedright superior mediastinal mass compared with a prior study dated12/04/2016. There is a small residual mass with central coarse dystrophiccalcifications. Superior sternal lymphadenopathy seen on the previousstudy has resolved. -------- FINAL REPORT -------- Dictated By: Boyd Tyler Dictated Date: 11/21/2024 11:00 ET Assigned Physician: Boyd Tyler Reviewed and Electronically Signed By: Boyd Tyler Signed Date: 11/21/2024 11:14 ET Workstation ID: [id number] Transcribed By: Self Edit Transcribed Date: 11/21/2024 11:01 ET us Hugo James MD IMG CT PROCEDURES Final Res ult * XR Lumbar Spine 4+ Views (11/21/2024 10:15 AM EDT) Anatomical Region Laterality Modality Spine, L-spine Radiographic Kalyani ging 11/21/2024 10:2 8 AM EDT Impressions 11/21/2024 10:30 AM EDT There is degenerative disc disease at the L5-S1 level. Otherwise, normal examination of the lumbosacral spine. There is evidence of constipation. Code 88254 -------- FINAL REPORT -------- Dictated By: Brodie Granda Dictated Date: 11/21/2024 10:28 ET Assigned Physician: Brodie Granda Reviewed and Electronically Signed By: Brodie Granda Signed Date: 11/21/2024 10:30 ET Workstation ID: [id number] Transcribed By: Self Edit Transcribed Date: 11/21/2024 10:28 ET Narrative 11/21/2024 10:30 AM EDT HISTORY: The patient is a 44-year-old female with left-sided low back pain, nontraumatic. FINDINGS: AP, lateral, right and left oblique, and coned-down spot lateral views of the lumbosacral spine are obtained. The study demonstrates normal alignment of the bony structures. No fracture is seen and no osteolytic or osteoblastic lesion is demonstrated. There is no evidence of facet joint disease. There is narrowing of the L5-S1 disc space consistent with degenerative disc disease. The remaining disc spaces are well-maintained. Cholecystectomy clips are present. There is a moderate amount of fecal material throughout the colon from the cecum to the rectum consistent with constipation. Procedure Note Brodie Granda MD - 11/21/2024 HISTORY: The patient is a 44-year-old female with left-sided low backpain, nontraumatic. FINDINGS: AP, lateral, right and left oblique, and coned-down spot lateralviews of the lumbosacral spine are obtained. The study demonstratesnormal alignment of the bony structures. No fracture is seen and noosteolytic or osteoblastic lesion is demonstrated. There is no evidenceof facet joint disease. There is narrowing of the L5-S1 disc spaceconsistent with degenerative disc disease. The remaining disc spaces arewell-maintained. Cholecystectomy clips are present. There is a moderate amount of fecalmaterial throughout the colon from the cecum to the rectum consistent withconstipation. IMPRESSION: There is degenerative disc disease at the L5-S1 level. Otherwise, normalexamination of the lumbosacral spine. There is evidence ofconstipation. Code 62246 -------- FINAL REPORT -------- Dictated By: Brodie Granda Dictated Date: 11/21/2024 10:28 ET Assigned Physician: Brodie Granda Reviewed and Electronically Signed By: Brodie Granda Signed Date: 11/21/2024 10:30 ET Workstation ID: [id number] Transcribed By: Self Edit Transcribed Date: 11/21/2024 10:28 ET us Hugo James MD IMG XR PROCEDURES Final Res ult * XR Foot 3+ Views Left (11/21/2024 10:14 AM EDT) Anatomical Region Laterality Modality Lower Extremities, Foot Left [facility] 11/21/2024 10:2 7 AM EDT Impressions 11/21/2024 10:28 AM EDT Normal examination with the incidental exception of small inferior and superior calcaneal osteophytes. Code 36078 -------- FINAL REPORT -------- Dictated By: Brodie Granda Dictated Date: 11/21/2024 10:27 ET Assigned Physician: Brodie Granda Reviewed and Electronically Signed By: Brodie Granda Signed Date: 11/21/2024 10:28 ET Workstation ID: [id number] Transcribed By: Self Edit Transcribed Date: 11/21/2024 10:27 ET Narrative 11/21/2024 10:28 AM EDT HISTORY: The patient is a 44-year-old female with pain and swelling of the left foot, nontraumatic. FINDINGS: AP, lateral, and oblique views of the left foot are obtained. The study demonstrates no fracture, dislocation, or significant arthritic change. Small inferior and superior calcaneal osteophytes are incidentally noted. No soft tissue abnormality is seen. Procedure Note Brodie Granda MD - 11/21/2024 HISTORY: The patient is a 44-year-old female with pain and swelling of theleft foot, nontraumatic. FINDINGS: AP, lateral, and oblique views of the left foot are obtained.The study demonstrates no fracture, dislocation, or significant arthriticchange. Small inferior and superior calcaneal osteophytes areincidentally noted. No soft tissue abnormality is seen. IMPRESSION: Normal examination with the incidental exception of small inferior andsuperior calcaneal osteophytes. Code 41793 -------- FINAL REPORT -------- Dictated By: Brodie Granda Dictated Date: 11/21/2024 10:27 ET Assigned Physician: Brodie Granda Reviewed and Electronically Signed By: Brodie Granda Signed Date: 11/21/2024 10:28 ET Workstation ID: [id number] Transcribed By: Self Edit Transcribed Date: 11/21/2024 10:27 ET us Hugo James MD IMG XR PROCEDURES Final Res ult * (ABNORMAL) Urinalysis with reflex microscopic and culture (10/08/2024 1:38 PM EDT) Specific [place] Urine 1.022 1.003 - 1.030 LAB URINALYSIS - AUTOMATED METHOD 10/08/2024 6:12 PM [facility] pH, Urine 6.0 5.0 - 8.0 pH LAB URINALYSIS - AUTOMATED METHOD 10/08/2024 6:12 PM [facility] Leukocytes, Urine Trace(A) Negative LAB URINALYSIS - AUTOMATED METHOD 10/08/2024 6:12 PM [facility] Nitrite, Urine Negative Negative LAB URINALYSIS - AUTOMATED METHOD 10/08/2024 6:12 PM [facility] Protein, Urine Negative <=Trace mg/dL LAB URINALYSIS - AUTOMATED METHOD 10/08/2024 6:12 PM [facility] Glucose, Urine Negative Negative mg/dL LAB URINALYSIS - AUTOMATED METHOD 10/08/2024 6:12 PM [facility] Ketones, Urine Trace(A) Negative mg/dL LAB URINALYSIS - AUTOMATED METHOD 10/08/2024 6:12 PM [facility] Urobilinogen , Urine 1.0 0.2 - 1.0 mg/dL LAB URINALYSIS - AUTOMATED METHOD 10/08/2024 6:12 PM [facility] Bilirubin, Urine Negative Negative LAB URINALYSIS - AUTOMATED METHOD 10/08/2024 6:12 PM [facility] Blood, Urine Negative Negative LAB URINALYSIS - AUTOMATED METHOD 10/08/2024 6:12 PM [facility] RBC, Urine 4 0 - 4 /HPF 10/08/2024 6:12 PM EDT [facility] WBC, Urine 4 0 - 4 /HPF 10/08/2024 6:12 PM EDT [facility] Squamous Epithelial, Urine 40 0 - 60 /LPF 10/08/2024 6:12 PM EDT [facility] Non-Squamous Epithelial, Urine Rare Transitional epithelial cells. /LPF 10/08/2024 6:12 PM EDT [facility] Bacteria, Urine Few(A) Negative /HPF 10/08/2024 6:12 PM EDT [facility] Hyaline Casts, Urine 6(H) 0 - 3 /LPF 10/08/2024 6:12 PM EDT [facility] Mucus, Urine Small None /HPF 10/08/2024 6:12 PM EDT [facility] Urine Urine specimen obtained by clean catch procedure / Unknown Non-blood Collection / Unknown 10/08/2024 1:38 PM EDT 10/08/2024 1:38 PM EDT Hugo James MD LAB URINE ORDERABLES Final Result Performing Organization Address [facility]/ZIP Co de Phone Number [facility] [address] [place] [address], [place] [phone] * Treponema pallidum antibody with reflex to RPR and particle agglutination (10/08/2024 1:38 PM EDT) T. Pallidum Antibodies Negative Negative LAB CHEMISTRY METHOD 10/08/2024 6:29 PM EDT [facility] Blood Venous blood specimen / Unknown Venipuncture / Unknown 10/08/2024 1:38 PM EDT 10/08/2024 1:38 PM EDT Hugo James MD LAB BLOOD ORDERABLES Final Result [facility] [address] [place] [address], [place] [phone] * Garcia urine culture tube (10/08/2024 1:38 PM EDT) [facility] Extra Tube Hold for add-ons. 10/08/2024 7:01 PM EDT [facility] Comment:Auto resulted. Urine Urine specimen obtained by clean catch procedure / Unknown Non-blood Collection / Unknown 10/08/2024 1:38 PM EDT 10/08/2024 1:38 PM EDT Hugo James MD LAB URINE ORDERABLES Final Result [facility] [address] [place] [address], [place] [phone] * (ABNORMAL) CBC auto differential (10/08/2024 1:38 PM EDT) [facility] WBC 8.5 4.8 - 10.8 K/mcL LAB HEMETOLOGY METHOD 10/08/2024 5:30 PM EDT [facility] RBC 3.80 3.80 - 4.80 M/mcL LAB HEMETOLOGY METHOD 10/08/2024 5:30 PM EDT [facility] Hemoglobin 12.5 11.5 - 16.0 g/dL LAB HEMETOLOGY METHOD 10/08/2024 5:30 PM EDT [facility] Hematocrit 38.7 35.0 - 47.0 % LAB HEMETOLOGY METHOD 10/08/2024 5:30 PM EDT [facility] MCV 101.8(H) 79.0 - 98.0 FL LAB HEMETOLOGY METHOD 10/08/2024 5:30 PM EDT [facility] MCH 32.9(H) 27.0 - 32.0 pcg LAB HEMETOLOGY METHOD 10/08/2024 5:30 PM EDT [facility] MCHC 32.3 32.0 - 37.0 g/dL LAB HEMETOLOGY METHOD 10/08/2024 5:30 PM EDT [facility] RDW 13.8 11.0 - 15.0 % LAB HEMETOLOGY METHOD 10/08/2024 5:30 PM EDT [facility] Platelets 318 130 - 400 K/mcL LAB HEMETOLOGY METHOD 10/08/2024 5:30 PM EDT [facility] MPV 8.8 7.0 - 11.0 FL LAB HEMETOLOGY METHOD 10/08/2024 5:30 PM EDT [facility] NRBC 0.0 <1.0 % LAB HEMETOLOGY METHOD 10/08/2024 5:30 PM EDT [facility] NRBC Absolute 0.00 <0.10 K/mcL LAB HEMETOLOGY METHOD 10/08/2024 5:30 PM EDT [facility] Neutrophils Relative 64.8 % LAB HEMETOLOGY METHOD 10/08/2024 5:30 PM EDT [facility] Lymphocytes Relative 26.5 % LAB [facility]OLOGY [facility] Monocytes Relative 4.2 % LAB HEMETOLOGY METHOD 10/08/2024 5:30 PM EDT [facility] Eosinophils Relative 3.4 % LAB HEMETOLOGY METHOD 10/08/2024 5:30 PM EDT [facility] Basophils Relative 0.7 % LAB HEMETOLOGY METHOD 10/08/2024 5:30 PM EDT [facility] Immature Granulocytes Relative 0.4 % LAB HEMETOLOGY METHOD 10/08/2024 5:30 PM EDT [facility] Neutrophils Absolute 5.53 1.50 - 7.00 K/mcL LAB HEMETOLOGY METHOD 10/08/2024 5:30 PM EDT [facility] Lymphocytes Absolute 2.26 1.00 - 5.00 K/mcL LAB HEMETOLOGY METHOD 10/08/2024 5:30 PM EDT [facility] Monocytes Absolute 0.36 0.20 - 1.00 K/mcL LAB HEMETOLOGY METHOD 10/08/2024 5:30 PM EDT [facility] Eosinophils Absolute 0.29 0.00 - 0.50 K/mcL LAB HEMETOLOGY METHOD 10/08/2024 5:30 PM EDT [facility] Basophils Absolute 0.06 0.00 - 0.20 K/mcL LAB HEMETOLOGY METHOD 10/08/2024 5:30 PM EDT [facility] Immature Granulocytes Absolute 0.03 0.00 - 0.03 K/mcL LAB HEMETOLOGY METHOD 10/08/2024 5:30 PM EDT [facility] Blood Venous blood specimen / Unknown Venipuncture / Unknown 10/08/2024 1:38 PM EDT 10/08/2024 1:38 PM EDT us Hugo James MD LAB BLOOD ORDERABLES Final Result [facility] [address] [place] [address], * Alkaline phosphatase, bone specific (10/08/2024 1:38 PM EDT) Alkaline Phosphatase Bone 13.2 5.0 - 18.8 ug/L 10/13/2024 2:41 PM EDT [facility] Comment: Liver alkaline phosphatase can affect the measurement of bone specific alkaline phosphatase in this assay. Each 100 U/L of liver alkaline phosphatase contributes an additional 2.5 to 5.8 ug/L to the bone specific alkaline phosphatase result. Test performed at [facility], [address], [place] [id number] Britt Qiu MD, PhD - Animal Pathologist Blood Venous blood specimen / Unknown Venipuncture / Unknown 10/08/2024 1:38 PM EDT 10/08/2024 1:38 PM EDT Hugo James MD LAB BLOOD ORDERABLES Final Result [facility] [address] [place] [address] * (ABNORMAL) Vitamin D 25 hydroxy (10/08/2024 1:38 PM EDT) Vit D, 25-Hydroxy 7.2(L) 30.0 - 80.0 ng/mL LAB CHEMISTRY METHOD 10/08/2024 6:18 PM EDT [facility] Blood Venous blood specimen / Unknown Venipuncture / Unknown 10/08/2024 1:38 PM EDT 10/08/2024 1:38 PM EDT Hugo James MD LAB BLOOD ORDERABLES Final Result Performing Organization Address [facility]/ZIP Co de Phone Number [facility] [address] [place] [address], [place] [phone] * Culture urine (10/08/2024 1:38 PM EDT) [facility] Culture, Urine No growth 10/09/2024 2:03 PM EDT [facility] Urine Urine specimen obtained by clean catch procedure / Unknown Non-blood Collection / Unknown 10/08/2024 1:38 PM EDT 10/08/2024 6:12 PM EDT Hugo James MD LAB MICROBIOLOGY - GENERAL ORDERABLES Final Result Performing Organization Address City/[facility]/ZIP Co de Phone Number [facility] [address] [place] [address], [place] [phone] * (ABNORMAL) Comprehensive metabolic panel (10/08/2024 1:38 PM EDT) Sodium 142 133 - 145 mmol/L LAB CHEMISTRY METHOD 10/08/2024 5:27 PM [facility] Potassium 4.3 3.5 - 5.5 mmol/L LAB CHEMISTRY METHOD 10/08/2024 5:27 PM [facility] Chloride 114(H) 96 - 110 mmol/L LAB CHEMISTRY METHOD 10/08/2024 5:27 PM [facility] CO2 21 21 - 32 mmol/L LAB CHEMISTRY METHOD 10/08/2024 5:27 PM [facility] Anion Gap 7 3 - 11 LAB CHEMISTRY METHOD 10/08/2024 5:27 PM [facility] Glucose 104(H) 70 - 100 mg/dL LAB CHEMISTRY METHOD 10/08/2024 5:27 PM [facility] BUN 11 5 - 25 mg/dL LAB CHEMISTRY METHOD 10/08/2024 5:27 PM [facility] Creatinine 0.77 0.50 - 1.10 mg/dL LAB CHEMISTRY METHOD 10/08/2024 5:27 PM [facility] eGFR 96 >=60 mL/min/1. 73m2 LAB CHEMISTRY METHOD 10/08/2024 5:27 PM [facility] Comment:Calculation based on the Chronic Kidney Disease Epidemiology Collaboration (CKD-EPI) equation refit without adjustment for race. BUN/Creatinine Ratio 14.3 LAB CHEMISTRY METHOD 10/08/2024 5:27 PM [facility] Calcium 9.4 8.5 - 10.5 mg/dL LAB CHEMISTRY METHOD 10/08/2024 5:27 PM [facility] AST (SGOT) 13 10 - 42 unit/L LAB CHEMISTRY METHOD 10/08/2024 5:27 PM [facility] ALT (SGPT) 16 10 - 60 unit/L LAB CHEMISTRY METHOD 10/08/2024 5:27 PM EDT [facility] Alkaline Phosphatase 116 42 - 121 unit/L LAB CHEMISTRY METHOD 10/08/2024 5:27 PM EDT [facility] Total Protein 6.9 6.0 - 8.0 g/dL LAB CHEMISTRY METHOD 10/08/2024 5:27 PM EDT [facility] Albumin 3.6 3.2 - 5.0 g/dL LAB CHEMISTRY METHOD 10/08/2024 5:27 PM EDT [facility] Total Bilirubin 0.2 0.0 - 1.4 mg/dL LAB CHEMISTRY METHOD 10/08/2024 5:27 PM EDT [facility] Blood Venous blood specimen / Unknown Venipuncture / Unknown 10/08/2024 1:38 PM EDT 10/08/2024 1:38 PM EDT Huog James MD LAB BLOOD ORDERABLES Final Result Performing Organization Address City/[facility]/ZIP Co de Phone Number [facility] [address] [place] [address], [place] [phone] * Thyroid stimulating hormone with reflex to free t4 and free t3 (10/08/2024 1:25 PM EDT) TSH 2.54 0.40 - 4.00 mcIU/mL LAB CHEMISTRY METHOD 10/08/2024 5:53 PM EDT [facility] Blood Venous blood specimen / Unknown Venipuncture / Unknown 10/08/2024 1:25 PM EDT 10/08/2024 1:25 PM EDT Jarad Woody NP LAB BLOOD ORDERABLES Final R esult Performing Organization Address City/[facility]/ZIP Co de Phone Number [facility] [address] [place] [address], [place] [phone] * (ABNORMAL) Lipid panel (10/25/2022) LDL/HDL Ratio 4 0 - 4 Triglycerides 78 0 - 150 mg/dL Cholesterol 163 0 - 200 mg/dL HDL 44 >=40 mg/dL LDL Cholesterol 104(A) 0 - 100 mg/dL Blood Venous blood specimen / Unknown us Historical Provider LAB BLOOD ORDERABLES Obdulia l Result * Cervical Cancer Screening: HPV (01/11/2016) Pathologist [facility] Cervical Cancer Screening: HPV Negative, Abstracted Historical Provider HEALTH MAINTENANCE Final Result from Last 3 Months or Most Recently Relevant to Health Maintenance Insurance [facility] [employer] Care Teams Educational Institution Curator Relationship Specialty Start Date End Date Hugo James MD [facility] [place] [id number] PCP - General 02/12/24
== END 2024-12-02 12:14 | disposition home or self-care (01) ==
LOC: HO.HSM 11:15
PROVIDERS: PCP Internal Medicine; Visit Provider Registered Nurse
DX: G43.909 Migraine, unspecified, not intractable, without status migrainosus (principal); G47.00 Insomnia, unspecified
CPT/HCPCS: 99214

== ENCOUNTER → 2024-12-02 11:15 | Outpatient (BNVA) | payer OTHER, SELFPAY | PROVIDERS: PCP Internal Medicine; Visit Provider Registered Nurse | DX: G43.909 Migraine, unspecified, not intractable, without status migrainosus (principal); G47.00 Insomnia, unspecified; Z79.631 Long term (current) use of antimetabolite agent; Z79.899 Other long term (current) drug therapy | CPT/HCPCS: 99212 ==